=== PATIENT | female | born 1965 | race Caucasian/White ===

== ENCOUNTER 2018-05-23 08:37 | Day surgery (SDC) | payer OTHER ==
[~2018-05-23 08:37] MED LIST: SEVOFLURANE 15 MIN
[2018-05-23] MEDS: SOD CHLORIDE 0.9% 1,000 ML IV (09:32)
[2018-05-23] MEDS ORDERED: OXYCODONE/ACETAMINOPHEN (5/325) TAB PO (11:00)
[2018-05-23] MEDS ORDERED: CEFAZOLIN 2 GM/50 ML (PMX) 50 ML IVPB (11:00)
[2018-05-23] MEDS ORDERED: DIPHENHYDRAMINE 50 MG INJ IV (11:00)
[2018-05-23] MEDS ORDERED: MEPERIDINE 25 MG INJ IV (11:00)
[2018-05-23] MEDS ORDERED: FENTAnyl 50 MCG/ML VIAL IV (11:00)
[2018-05-23] MEDS ORDERED: HYDROmorphONE 1 MG/5 ML IV SYRINGE IV (11:00)
[2018-05-23] MEDS ORDERED: FENTAnyl 50 MCG/ML VIAL (11:02)
[2018-05-23] MEDS ORDERED: SUCCINYLCHOLINE CHLORIDE 100 MG/5 ML SYG IV (11:02)
[2018-05-23] MEDS ORDERED: MIDAZOLAM 1 MG/ML 2 ML INJ (11:02)
[2018-05-23] MEDS ORDERED: PROPOFOL 20 ML (11:02)
[2018-05-23] MEDS ORDERED: ROCURONIUM 50 MG INJ (11:02)
[2018-05-23] MEDS ORDERED: LIDOCAINE 2% (SDV) 5 ML INJ (11:02)
[2018-05-23] MEDS ORDERED: ROPIVACAINE 0.5 % 30 ML VIAL (11:04)
[2018-05-23] MEDS ORDERED: FAMOTIDINE 20 MG INJ (11:20)
[2018-05-23] MEDS ORDERED: DEXAMETHASONE 4 MG/ML 5 ML INJ (11:20)
[2018-05-23] MEDS ORDERED: ONDANSETRON 4 MG INJ (11:20)
[2018-05-23] MEDS ORDERED: HYDROmorphONE 2 MG/ML SYG (11:27)
[2018-05-23] MEDS ORDERED: CEFAZOLIN 1 GM INJ (11:27)
[2018-05-23] MEDS ORDERED: EPHEDrine 25 MG/5 ML SYG (11:28)
[2018-05-23] MEDS ORDERED: SUGAMMADEX SODIUM 200 MG/2 ML VIAL IV ×2 (11:47→11:53)
[2018-05-23] MEDS: HYDROmorphONE 1 MG/5 ML IV SYRINGE IV (13:07)
[2018-05-23] MEDS: ONDANSETRON 4 MG INJ IV (13:40)
[2018-05-23] MEDS: HYDROCODONE/APAP (5/325) TAB PO (14:12)
[2018-05-23] MEDS: PROCHLORPERAZINE 10 MG INJ IV (14:33)
== END 2018-05-23 16:35 | disposition home or self-care (01) ==
LOC: SDS 08:37
DX: K80.10 Calculus of gallbladder with chronic cholecystitis without obstruction (principal); I10 Essential (primary) hypertension; E11.9 Type 2 diabetes mellitus without complications
CPT/HCPCS: 47562; 82962; 84703; 88304

== ENCOUNTER 2018-05-25 18:46 | Emergency (ER) | payer OTHER ==
[2018-05-25] MEDS: ONDANSETRON 4 MG INJ IV (22:35)
[2018-05-25] MEDS: HYDROmorphONE 1 MG/ML SYG IV (22:36)
[2018-05-25] MEDS: SOD CHLORIDE 0.9% 500 ML IV (22:36)
[2018-05-25 23:02] LABS: ADD MAN DIFF? NO
[2018-05-25 23:03] LABS: WHITE BLOOD COUNT 14.3 10^3/ul (4.8-10.8)
[2018-05-25 23:03] LABS: BASOPHILS % 0.2 % (0.0-2.0); HEMATOCRIT 40.9 % (37.0-47.0); HEMOGLOBIN 13.5 g/dl (12.0-16.0); LYMPHOCYTES # 0.8 10^3/ul (0.8-2.9); LYMPHOCYTES % 5.3 % (15.0-51.0); MEAN CORPUSCULAR HEMOGLOBIN 28.6 pg (29.0-33.0); MEAN CORPUSCULAR VOLUME 86.7 fl (82.0-101.0); MEAN PLATELET VOLUME 10.3 fl (7.4-10.4); MONOCYTE # 0.8 10^3/ul (0.3-0.9); MONOCYTES % 5.3 % (0.0-11.0); NEUTROPHIL # 12.6 10^3/ul (1.6-7.5); NEUTROPHILS % 88.5 % (39.0-77.0); PLATELET COUNT 190 10^3/UL (140-415); RED BLOOD COUNT 4.72 10^6/ul (4.20-5.40); RED CELL DISTRIBUTION WIDTH 12.2 % (11.5-14.5)
[2018-05-25 23:23] LABS: ALANINE AMINOTRANSFERASE 183 IU/L (13-69); ALBUMIN 4.3 g/dl (3.3-4.9); ALBUMIN/GLOBULIN RATIO 1.26; ALKALINE PHOSPHATASE 79 IU/L (42-121); ANION GAP 10 (5-13); ASPARTATE AMINO TRANSFERASE 59 IU/L (15-46); BLOOD UREA NITROGEN 18 mg/dl (7-20); CALCIUM 9.5 mg/dl (8.4-10.2); CARBON DIOXIDE 29 mmol/L (21-31); CHLORIDE 102 mmol/L (97-110); CREATININE 0.85 mg/dl (0.44-1.00); Estimated GFR > 60 mL/min (>60); GLUCOSE 142 mg/dl (70-220); LIPASE 201 U/L (23-300); POTASSIUM 3.9 mmol/L (3.5-5.1); SODIUM 141 mmol/L (135-144); TOTAL PROTEIN 7.7 g/dl (6.1-8.1)
[2018-05-26] MEDS: HYDROmorphONE 1 MG/ML SYG IV ×2 (02:04→02:09)
[2018-05-26 02:13] LABS: URINE BLOOD (Dip) POC 2+ (NEGATIVE); URINE GLUCOSE (Dip) POC Negative (NEGATIVE); URINE KETONES (Dip) POC 1+ (NEGATIVE); URINE LEUKOCYTE EST (Dip) POC 3+ (NEGATIVE); URINE NITRITE (Dip) POC Negative (NEGATIVE); URINE TOTAL PROTEIN POC 1+ (NEGATIVE)
[2018-05-26] MEDS ORDERED: ONDANSETRON (ODT) 4 MG TAB ODT (02:54)
[2018-05-26] MEDS ORDERED: MAGNESIUM CITRATE 300 ML BTL PO (03:00)
== END 2018-05-26 08:12 | disposition home or self-care (01) ==
LOC: E/R 05-26 08:12
DX: R10.9 Unspecified abdominal pain (principal); I10 Essential (primary) hypertension
CPT/HCPCS: 36415; 74176; 80053; 81003; 83690; 85025; 96374; 96375; 99285-25